=== PATIENT | male | born 1965 | race African-American/Black ===

== ENCOUNTER 2017-03-15 12:40 | Emergency (ER) | payer SELFPAY ==
--- NOTE | 2017-03-15 12:52 | EDM.PDOC ---
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 He is from [place]. He states that he stopped at a nearby gas station and got out to go to the bathroom. He states that he developed shortness of breath while in the bathroom, then, when he got out of the bathroom , he felt dizzy, therefore he sat down. He states that the next thing he knew, people were standing over him. He apparently suffered a syncopal episode. EMS was called. EMS stated that they found the patient's blood pressure to be "low" however, they did not provide us a value. They stated that the patient's oxygen saturation was okay, but because he was complaining of shortness of breath, they placed a nonrebreather mask anyway. They stated that their ECG demonstrated ST depressions in the anterolateral leads, therefore they gave 4 baby aspirin. Because the patient's blood pressure was low, they did not give nitroglycerin. Upon arrival to the ED, the patient was tachypneic and tachycardic. His oxygen saturation was found to be in the 80s on room air, therefore oxygen was provided per nasal cannula. The patient denies recent lower extremity edema. No prior history of a blood clot. No recent history of lower extremity injury. 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) ED ROS GENERAL - Review of Systems Review Of Systems: See Below Constitutional: Reports: No Symptoms HEENT: Reports: No Symptoms Respiratory: Reports: No Symptoms Cardiovascular: Reports: No Symptoms Endocrine: Reports: No Symptoms GI/Abdominal: Reports: No Symptoms : Reports: No Symptoms Musculoskeletal: Reports: No Symptoms Skin: Reports: No Symptoms Neurological: Reports: No Symptoms Psychiatric: Reports: No Symptoms Hematologic/Lymphatic: Reports: No Symptoms Immunologic: Reports: No Symptoms - Physical Exam Exam: See Below Exam Limited By: No Limitations General Appearance: Alert, WD/WN, Moderate Distress (Tachypneic) Eye Exam: Bilateral Eye: Normal Inspection Ears: Normal External Exam, Hearing Grossly Normal Nose: Normal Inspection, No Blood Throat/Mouth: Normal Inspection, Normal Lips, Normal Voice, No Airway Compromise Head Exam: Atraumatic, Normocephalic Neck: Normal Inspection, Full Range of Motion Respiratory/Chest: No Accessory Muscle Use, Rhonchi (Left lung field) Cardiovascular: Normal Peripheral Pulses, No Gallop, No JVD, No Murmur, No Rub, Tachycardia (regular) GI/Abdominal: Normal Bowel Sounds, Soft, Non-Tender, No Organomegaly, No Distention, No Abnormal Bruit, No Mass (Male) Exam: Deferred Rectal (Males) Exam: Deferred Neuro Exam (Abbreviated): Alert, Oriented, Normal Cognition, No Motor/Sensory Deficits Back Exam: Normal Inspection, Full Range of Motion, NT Extremities: Normal Inspection, Normal Range of Motion, No Pedal Edema, Normal Capillary Refill, Other (1-2+ pitting pretibial edema bilaterally) Psychiatric: Normal Affect, Anxious Skin Exam: Warm, Dry, Intact, Normal Color, No Rash EKG INTERPRETATION EKG Date: 03/15/17 Time: 12:46 Rhythm: Other (Sinus tachycardia) Rate (Beats/Min): 119 [place]: Normal P-Wave: Present QRS: Normal ST-T: Depressed (V4, V5, I, aVR, III) QT: Normal Comparison: NA - No Prior EKG Course - Vital Signs Last Recorded V/S: Last Vital Signs Temp 36.6 C 03/15/17 12:58 Pulse 123 H 03/15/17 14:12 Resp 23 H 03/15/17 14:12 BP 117/98 H 03/15/17 14:12 Pulse Ox 94 L 03/15/17 14:12 - Orders/Labs/Meds Orders: Active Orders 24 hr Category Date Time Status EKG Documentation Completion [RC] STAT Care 03/15/17 12:52 Active Chest 1V Frontal [CR] Stat Exams 03/15/17 12:53 Taken Sodium Chloride 0.9% [Normal Saline] 100 ml Med 03/15/17 13:15 Active IV ASDIRECTED Sodium Chloride 0.9% [Saline Flush] Med 03/15/17 13:10 Active 10 ml FLUSH ONETIME PRN Medication Orders Sodium Chloride (Normal Saline) 100 mls @ 65 mls/hr IV ASDIRECTED RYAN Last Admin: 03/15/17 13:27 Dose: 65 mls/hr Sodium Chloride (Saline Flush) 10 ml FLUSH ONETIME PRN PRN Reason: IV FLUSH Last Admin: 03/15/17 13:27 Dose: 10 ml Labs: Laboratory Tests 03/15/17 03/15/17 03/15/17 Range/Units 12:52 13:00 13:00 WBC 6.36 (4.23-9.07) K/mm3 RBC 5.21 (4.63-6.08) M/mm3 Hgb 13.6 L (13.7-17.5) gm/L Hct 43.1 (40.1-51.0) % MCV 82.7 (79.0-92.2) fl MCH 26.1 (25.7-32.2) pg MCHC 31.6 L (32.2-35.5) g/dl RDW Std Deviation 39.4 (35.1-43.9) fL Plt Count 159 L (163-337) K/mm3 MPV 10.3 (9.4-12.3) fl Neutrophils % (Manual) 34 L (40-60) % Band Neutrophils % 0 (0-10) % Lymphocytes % (Manual) 56 H (20-40) % Atypical Lymphs % 0 % Monocytes % (Manual) 8 (2-10) % Eosinophils % (Manual) 2 (0.8-7.0) % Basophils % (Manual) 0 L (0.2-1.2) Platelet Estimate Adequate RBC Morph Comment Normal PT 11.1 (8.0-13.0) SECONDS INR 1.02 APTT 22 (22-36) SECONDS Puncture Site Rt radial ABG pH 7.37 (7.35-7.45) ABG pCO2 35.0 (35.0-45.0) mmHg ABG pO2 58.0 L (80.0-100.0) mmHg ABG HCO3 19.5 L (22.0-26.0) meq/L ABG O2 Saturation 80.7 L (96.0-97.0) % ABG Base Excess -4.6 L (-2-2.0) Subhash Test Positive O2 Delivery Device Room air FiO2 0.00 L (21.00-100.00) % Sodium (136-145) mEq/L Potassium (3.5-5.1) mEq/L Chloride (98-107) mEq/L Carbon Dioxide (21-32) mEq/L Anion Gap (5-15) BUN (7-18) mg/dL Creatinine (0.7-1.3) mg/dL Est Cr Clr Drug Dosing mL/min Estimated GFR (MDRD) (>60) mL/min BUN/Creatinine Ratio (14-18) Glucose (74-106) mg/dL Calcium (8.5-10.1) mg/dL Total Bilirubin (0.2-1.0) mg/dL AST (15-37) U/L ALT (16-63) U/L Alkaline Phosphatase (46-116) U/L Troponin I (0.00-0.056) ng/mL NT-Pro-B Natriuret Pep (0-125) pg/mL Total Protein (6.4-8.2) g/dl Albumin (3.4-5.0) g/dl Globulin gm/dL Albumin/Globulin Ratio (1-2) // Range/Units 13:00 WBC (4.23-9.07) K/mm3 RBC (4.63-6.08) M/mm3 Hgb (13.7-17.5) gm/L Hct (40.1-51.0) % MCV (79.0-92.2) fl MCH (25.7-32.2) pg MCHC (32.2-35.5) g/dl RDW Std Deviation (35.1-43.9) fL Plt Count (163-337) K/mm3 MPV (9.4-12.3) fl Neutrophils % (Manual) (40-60) % Band Neutrophils % (0-10) % Lymphocytes % (Manual) (20-40) % Atypical Lymphs % % Monocytes % (Manual) (2-10) % Eosinophils % (Manual) (0.8-7.0) % Basophils % (Manual) (0.2-1.2) Platelet Estimate RBC Morph Comment PT (8.0-13.0) SECONDS INR APTT (22-36) SECONDS Puncture Site ABG pH (7.35-7.45) ABG pCO2 (35.0-45.0) mmHg ABG pO2 (80.0-100.0) mmHg ABG HCO3 (22.0-26.0) meq/L ABG O2 Saturation (96.0-97.0) % ABG Base Excess (-2-2.0) Subhash Test O2 Delivery Device FiO2 (21.00-100.00) % Sodium 137 (136-145) mEq/L Potassium 3.4 L (3.5-5.1) mEq/L Chloride 103 (98-107) mEq/L Carbon Dioxide 21 (21-32) mEq/L Anion Gap 16.4 H (5-15) BUN 15 (7-18) mg/dL Creatinine 0.7 (0.7-1.3) mg/dL Est Cr Clr Drug Dosing 138.57 mL/min Estimated GFR (MDRD) > 60 (>60) mL/min BUN/Creatinine Ratio 21.4 H (14-18) Glucose 222 H (74-106) mg/dL Calcium 9.1 (8.5-10.1) mg/dL Total Bilirubin 0.3 (0.2-1.0) mg/dL AST 52 H (15-37) U/L ALT 70 H (16-63) U/L Alkaline Phosphatase 129 H (46-116) U/L Troponin I 0.047 (0.00-0.056) ng/mL NT-Pro-B Natriuret Pep 16 (0-125) pg/mL Total Protein 7.7 (6.4-8.2) g/dl Albumin 3.6 (3.4-5.0) g/dl Globulin 4.1 gm/dL Albumin/Globulin Ratio 0.9 L (1-2) Meds: Medications Generic Name Dose Route Start Last Admin Trade Name Freq PRN Reason Stop Dose Admin Sodium Chloride 100 mls @ 65 mls/hr 03/15/17 13:15 03/15/17 13:27 Normal Saline IV 65 mls/hr ASDIRECTED RYAN Administration Sodium Chloride 10 ml 03/15/17 13:10 03/15/17 13:27 Saline Flush FLUSH 10 ml ONETIME PRN Administration IV FLUSH Discontinued Medications Generic Name Dose Route Start Last Admin Trade Name Linda PRN Reason Stop Dose Admin Alteplase, Recombinant Confirm 03/15/17 13:07 Activase Administered 03/15/17 13:08 Dose 100 mg .ROUTE .STK-MED ONE Enoxaparin Sodium 110 mg 03/15/17 12:54 03/15/17 13:11 Lovenox SUBCUT 03/15/17 12:55 110 mg ONETIME STA Administration Sodium Chloride 1,000 mls @ 999 mls/hr 03/15/17 12:56 03/15/17 13:12 Normal Saline IV 03/15/17 13:56 999 mls/hr ONETIME ONE Administration Iopamidol 100 ml 03/15/17 13:10 03/15/17 13:26 Isovue-370 (76%) IVPUSH 03/15/17 13:11 100 ml ONETIME ONE Administration Iopamidol 50 ml 03/15/17 13:10 03/15/17 13:26 Isovue-370 (76%) IVPUSH 03/15/17 13:11 50 ml ONETIME ONE Administration - Re-Assessments/Exams Free Text/Narrative Re-Assessment/Exam: 03/15/17 12:57 The patient developed shortness of breath shortly before having a syncopal episode. His blood pressure was found to be low. He is tachycardic here in the ED. The patient has a pulmonary embolus until proven otherwise, therefore I have ordered Lovenox 1 mg/kg SQ and IV fluid. I have ordered a CT angiogram of the chest. 03/15/17 13:10 Portable chest radiograph appears to be unremarkable. Cardiac silhouette is within normal limits. No pulmonary vascular congestion. No pleural effusions. No focal infiltrate. No pneumothorax. Formal read per the Radiologist pending. 03/15/17 13:50 CT angiogram of the chest is read by Dr. Sen as: 1. Extensive pulmonary emboli. Pulmonary emboli appear to be causing increased right heart pressure as shown by an enlarged right ventricle slightly compressing the left ventricle. 2. Other incidental findings. 12/17/17 14:08 CT results discussed with the patient. At present, the patient states he is feeling better. He is no longer tachypneic or dyspneic, and his SpO2 is 96% on 4 L O2 per NC. His most recent BP is 114/59, with a heart rate of 104 bpm. The patient's case was discussed with Dr. Gao, Prop And Effects Designer at [facility], at 14:00. He is not recommending a thrombolytic at this time, but does agree to transfer of the patient. He would like patient to go through their ED. Case then discussed with Dr. Freed, ED Physician, at 14:05. He accepts the patient for transfer. The patient will go by ground ambulance, as we do not have fire pilot available at this time. Departure - Departure Time of Disposition: 14:14 Disposition: DC/[facility] to [facility] 02 Condition: Fair Clinical Impression: Pulmonary thromboembolism, Syncope, Hyperglycemia - Discharge Information Referrals: PCP,Not In Area [Primary Care Provider] - - My Orders Last 24 Hours: My Active Orders 03/15/17 12:52 EKG Documentation Completion [RC] STAT 03/15/17 12:53 Chest 1V Frontal [CR] Stat 03/15/17 13:10 Sodium Chloride 0.9% [Saline Flush] 10 ml FLUSH ONETIME PRN 03/15/17 13:15 Sodium Chloride 0.9% [Normal Saline] 100 ml IV ASDIRECTED - Assessment/Plan Last 24 Hours: My Active Orders 03/15/17 12:52 EKG Documentation Completion [RC] STAT 03/15/17 12:53 Chest 1V Frontal [CR] Stat 03/15/17 13:10 Sodium Chloride 0.9% [Saline Flush] 10 ml FLUSH ONETIME PRN 03/15/17 13:15 Sodium Chloride 0.9% [Normal Saline] 100 ml IV ASDIRECTED
[2017-03-15] MEDS ORDERED: Enoxaparin 120 MG/0.8 ML Syringe SUBCUT STA (12:54)
[2017-03-15] MEDS ORDERED: Sodium Chloride 0.9% 1,000 ML IV ONE (12:56)
[2017-03-15] MEDS ORDERED: Sodium Chloride 0.9% 10 ML Syringe FLUSH PRN (13:10)
[2017-03-15] MEDS ORDERED: Iopamidol 755 MG/ML 50 ML Bottle IVPUSH ONE (13:10)
[2017-03-15] MEDS ORDERED: Iopamidol 755 Mg/ML 100 ML Bottle IVPUSH ONE (13:10)
[2017-03-15] MEDS ORDERED: Sodium Chloride 0.9% 100 ML IV SCH (13:15)
--- NOTE | 2017-03-15 13:46 | CT ---
CT chest Technique: Multiple axial sections were obtained through the chest. Intravenous contrast was utilized. Study has been performed as a pulmonary angiogram protocol. Findings: Multiple pulmonary emboli are seen within the distal right main pulmonary artery and distal left main pulmonary artery extending into the segmental and subsegmental branches of both lower lungs. Segmental clot also seen within the right upper lung. Left ventricle is mildly compressed indicating increased right heart pressures secondary to the pulmonary emboli. Mediastinum and hilar regions show no adenopathy or mass. No pericardial thickening is seen. Visualized upper abdominal structures are within normal limits. Lungs are clear. No pleural effusions are seen. Bone window settings were reviewed which shows minimal degenerative endplate spurring within the spine. Impression: 1. Extensive pulmonary emboli. Pulmonary emboli appear to be causing increased right heart pressure as shown by an enlarged right ventricle slightly compressing the left ventricle. 2. Other incidental findings. Diagnostic code #5
--- NOTE | 2017-03-16 08:32 | CR ---
Chest: Portable view of the chest was obtained. Comparison: No previous study. Slightly prominent left hilum is seen felt to be due to vascular confluence. Lungs are clear. Bony structures are grossly intact. Impression: 1. Nothing acute is identified. Diagnostic code #1
== END 2017-03-15 14:40 ==
LOC: JD.ED 12:40
DX: I26.99 Other pulmonary embolism without acute cor pulmonale (principal); I10 Essential (primary) hypertension; R73.9 Hyperglycemia, unspecified; Z79.899 Other long term (current) drug therapy
CPT/HCPCS: 36415; 36600; 71010; 71275; 80053; 82803; 83880; 84484; 85025; 85610; 85730; 93005; 96372; 99285; J1650; J7030; J7040; J7050; Q9967; 93010; 99284-25